=== PATIENT | female | born 1970 | race Caucasian/White ===

== ENCOUNTER 2016-12-28 15:24 | Emergency (ER) | payer OTHER ==
[~2016-12-28] VITALS: Ht 170.2 cm; Wt 74.4 kg
[2016-12-28 15:30] VITALS: BP 131/88; PULSE 94; RESP 15; TEMP 97.7; O2SAT 99
[2016-12-28] MEDS ORDERED: ROBA500T PO (16:05)
[2016-12-28] MEDS ORDERED: IBUP800T23 PO (16:05)
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
== END 2016-12-28 16:15 | disposition home or self-care (01) ==
LOC: PHEFT 15:24
DX: S16.1XXA Strain of muscle, fascia and tendon at neck level, initial encounter (principal); M62.830 Muscle spasm of back; F17.200 Nicotine dependence, unspecified, uncomplicated; V49.9XXA Car occupant (driver) (passenger) injured in unspecified traffic accident, initial encounter
CPT/HCPCS: 99283